=== PATIENT | female | born 1975 | race Caucasian/White ===

== ENCOUNTER → 2016-06-21 | Outpatient (CLI) | payer BC ==
[~2016-06-21] MED LIST: COLACE 100MG C100 MG PO; CYMBALTA60 MG PO; IBUPROFEN600 MG PO; NORCO 5-325 TA1 EACH PO; PROTONIX40 MG PO
[2016-06-21 09:07] LABS: HEMOGLOBIN 14.1 gm/dl (12.3-15.3); RED BLOOD COUNT 5.05 M/UL (4.00-5.10); WHITE BLOOD COUNT 5.6 K/UL (4.5-11.0)
== END ==
LOC: OPSV2 08:30
PROVIDERS: Obstetrics & Gynecology
DX: Z01.812 Encounter for preprocedural laboratory examination (principal); N92.0 Excessive and frequent menstruation with regular cycle
CPT/HCPCS: 36415; 81001; 85025

== ENCOUNTER 2016-06-28 07:40 | Day surgery (SDC) | payer BC ==
[~2016-06-28] VITALS: Ht 160 cm; Wt 75.8 kg
[2016-06-28] MEDS ORDERED: CYMBALTA60 MG PO (08:35)
[2016-06-28] MEDS ORDERED: PROTONIX40 MG PO (08:36)
[2016-06-29 06:26] LABS: HEMOGLOBIN 12.8 gm/dl (12.3-15.3)
[2016-06-29] MEDS ORDERED: IBUPROFEN600 MG PO (10:06)
[2016-06-29] MEDS ORDERED: NORCO 5-325 TA1 EACH PO (10:07)
[2016-06-29] MEDS ORDERED: COLACE 100MG C100 MG PO (10:10)
== END 2016-06-29 10:50 | disposition home or self-care (01) ==
LOC: OR 07:40 → OB 12:00 → OR 06-29 10:50
PROVIDERS: Obstetrics & Gynecology
PROC: 0UT74ZZ Resection of Bilateral Fallopian Tubes, Percutaneous Endoscopic Approach (ICD-10-PCS; 2016-06-28)
PROC: 0UT94ZZ Resection of Uterus, Percutaneous Endoscopic Approach (ICD-10-PCS; principal; 2016-06-28 09:45)
PROC: 0UTC4ZZ Resection of Cervix, Percutaneous Endoscopic Approach (ICD-10-PCS; 2016-06-28 09:45)
DX: N80.0 Endometriosis of uterus (principal); N72 Inflammatory disease of cervix uteri; N92.0 Excessive and frequent menstruation with regular cycle; N94.10 Unspecified dyspareunia; N94.6 Dysmenorrhea, unspecified; E11.9 Type 2 diabetes mellitus without complications; G43.909 Migraine, unspecified, not intractable, without status migrainosus; M79.7 Fibromyalgia; Z82.49 Family history of ischemic heart disease and other diseases of the circulatory system; Z83.3 Family history of diabetes mellitus; Z79.899 Other long term (current) drug therapy; Z98.890 Other specified postprocedural states
CPT/HCPCS: 36415; 82962; 85014; 85018; J0690; J1100; J1885; J2250; J2405; J2710; J2795; J3010; J7120

== ENCOUNTER → 2020-11-07 | Outpatient (CLI) | payer BC | LOC: KOH-I 08:36 | DX: U07.1 COVID-19 (principal); J12.82 Pneumonia due to coronavirus disease 2019; R91.8 Other nonspecific abnormal finding of lung field | CPT/HCPCS: 71046 ==

== ENCOUNTER → 2020-12-11 | Outpatient (CLI) | payer BC | LOC: HEART 5 12-09 15:00 | DX: R07.9 Chest pain, unspecified (principal); R06.02 Shortness of breath; Z86.16 Personal history of COVID-19 | CPT/HCPCS: 93306 ==

== ENCOUNTER → 2021-02-19 | Outpatient (CLI) | payer BC | LOC: HEART 5 10:41 | DX: R07.9 Chest pain, unspecified (principal) ==